=== PATIENT | male | born 1990 | race Caucasian/White ===

== ENCOUNTER 2018-07-24 06:39 | Emergency (ER) | payer BC ==
[2018-07-24] MEDS ORDERED: predniSONE 10 MG Tab ONE (06:40)
--- NOTE | 2018-07-25 08:50 | EDM.PDOC ---
ED HPI GENERAL MEDICAL PROBLEM - General Chief Complaint: General Stated Complaint: BACK PAIN Time Seen by Provider: 07/24/18 07:30 Source of Information: Reports: Patient History Limitations: Reports: No Limitations - History of Present Illness INITIAL COMMENTS - FREE TEXT/NARRATIVE: This is a 27yo M here for lower back pain with radiation down the left leg. He has had this issue in the past with right leg pain radiating down the back and numbness of the foot for weeks before improvement. He denies any prior lower back injury or other injuries. He obtains his care in [facility]. He has tried multiple medications but from his mother and other. He has no current Rx medications. Onset: Sudden Duration: Day(s): Location: Reports: Lower Extremity, Left Quality: Reports: Ache Severity: Moderate Improves with: Reports: None Worsens with: Reports: Movement - Related Data Allergies Allergy/AdvReac Type Severity Reaction Status Date / Time codeine Allergy Cannot Verified 07/24/18 06:42 Remember morphine Allergy Cannot Verified 07/24/18 06:42 Remember Home Meds: Home Meds ClonazePAM [KlonoPIN] 2 mg PO BID 07/24/18 [History] PARoxetine [Paxil] 10 mg PO DAILY 07/24/18 [History] Social & Family History - Tobacco Use Smoking Status *Q: Unknown Ever Smoked ED ROS GENERAL - Review of Systems Review Of Systems: ROS reveals no pertinent complaints other than HPI. ED EXAM, GENERAL - Physical Exam Exam: See Below Exam Limited By: No Limitations General Appearance: Alert, WD/WN, Mild Distress Eye Exam: Bilateral Eye: EOMI, PERRL Ears: Normal External Exam Nose: Normal Inspection Throat/Mouth: Normal Inspection Head: Atraumatic, Normocephalic Neck: Normal Inspection Respiratory/Chest: No Respiratory Distress Cardiovascular: Normal Peripheral Pulses Peripheral Pulses: 2+: Dorsalis Pedis (L), Dorsalis Pedis (R) GI/Abdominal: Normal Bowel Sounds Extremities: Normal Inspection Neurological: Alert, Oriented, CN II-XII Intact Psychiatric: Normal Affect, Normal Mood Course - Vital Signs Last Recorded V/S: Last Vital Signs Temp 36.9 C 07/24/18 07:21 Pulse 78 07/24/18 07:21 Resp 12 07/24/18 07:21 BP 137/88 07/24/18 07:21 Pulse Ox 100 07/24/18 07:21 Departure - Departure Time of Disposition: 08:00 Disposition: Home, Self-Care 01 Condition: Good Clinical Impression: Lumbar radiculopathy, acute - Discharge Information Instructions: Sciatica, Prednisone tablets Referrals: PCP,None [Primary Care Provider] - Forms: ED Department Discharge Additional Instructions: Take 5 tablets of prednisone 10 mg for a total of 50mg daily for 3 days, after 3 days take 1 50 mg tablet of prednisone for 7 days as prescribed. Follow up for MRI in [place] or in [facility]. Follow up with primary care provider for MRI results. Patient counseled on the need for f/u with his PCP. Patient agrees to f/u at the first available visit. He will f/u as needed in the ER. Counseled on Sciatica vs lumbar radiculopathy. Discussed for f/u MRI lumbar spine and patient will take order to his preferred location and f/u with his provider with results and further management. Counseled on the need for follow up and patient agrees with plan of care and follow up.
== END 2018-07-24 07:45 | disposition home or self-care (01) ==
LOC: LB.ED 06:39
DX: M54.16 Radiculopathy, lumbar region (principal); Z88.5 Allergy status to narcotic agent; Z88.8 Allergy status to other drugs, medicaments and biological substances
CPT/HCPCS: 99283; A9270-GY